=== PATIENT | female | born 1995 | race Caucasian/White ===

== ENCOUNTER 2024-12-31 12:34 | Outpatient (CLI) | payer OTHER, SELFPAY ==
--- NOTE | 2024-12-31 | ECHO_ITS ---
Patient Info Name: Serenity Petty Age: 29 years : 1995 Gender: Female Ht: 64 in Wt: 120 lbs BSA: 1.57 m2 HR: 73 bpm BP: 115 / 80 mmHg Heart Rhythm: Sinus Rhythm Technical Quality: Good Exam Date: 12/31/2024 12:50 PM Exam Location: Echo Lab Patient Status: Outpatient Admit Date: 12/31/2024 Staff Ordering Physician: PapaRobles MD Bar Welder: Loren Murry RDCS Attending Provider: OmidRobles MD Exam Type: CA echo doppler color flow Study Info Indications R00.2 - Palpitations Complete two-dimensional, color flow and Doppler transthoracic echocardiogram is performed. Summary 1. Complete two-dimensional, color flow and Doppler transthoracic echocardiogram is performed. 2. Left ventricular chamber dimension is normal. 3. Left ventricular systolic function is normal, estimated at 65-70%. 4. The left ventricular diastolic function is normal. 5. Right ventricular systolic function is normal. 6. No significant valvular disease. Left Ventricle Left ventricular chamber dimension is normal. Left ventricular systolic function is normal, estimated at 65-70%. There is no increased left ventricular wall thickness. The left ventricular diastolic function is normal. Right Ventricle Right ventricular chamber dimension is normal. Right ventricular systolic function is normal. Left Atria Left atrial chamber dimension is normal. Right Atria Right atrial chamber dimension is normal. Atrial Septum Intact interatrial septum visualized by color flow imaging. Aortic Valve The aortic valve is trileaflet. There is no aortic valve stenosis. There is no aortic valve regurgitation. Pulmonic Valve The pulmonic valve is not well visualized. There is trace pulmonic regurgitation. Mitral Valve There is no mitral valve regurgitation. Tricuspid Valve There is trace tricuspid valve regurgitation. Pericardium/Pleural There is no pericardial effusion. Inferior Vena Cava Normal inferior vena cava with >50% collapse upon inspiration consistent with normal right atrial pressure, 3 mmHg. Aorta The aortic root size at the sinus of Valsalva is normal. Left Ventricular Outflow Tract Name Value Normal LVOT 2D LVOT Diameter 2.0 cm LVOT Doppler LVOT Peak Gradient 4 mmHg LVOT Mean Gradient 2 mmHg LVOT VTI 19 cm LVOT VTI/AV VTI Ratio 0.9 LVOT Stroke Volume 62 ml LVOT CO 4.3 l/min LVOT CI 2.7 l/min/m2 Pulmonic Valve Name Value Normal RVOT Doppler RVOT Peak Gradient 3 mmHg PV Doppler PV Peak Gradient 5 mmHg Mitral Valve Name Value Normal MV Doppler MV Decel Dawson 612 cm/s2 MV PHT 51 ms MV Area (PHT) 4.3 cm2 4.0-5.0 MV Diastolic Function MV E Peak Velocity 108 cm/s MV A Peak Velocity 49 cm/s MV E/A 2.2 MV Decel Time 177 ms MV Annular TDI MV E/e' (Septal) 10.9 <=8.0 MV E/e' (Lateral) 8.2 <=8.0 MV E/e' (Average) 9.5 Tricuspid Valve Name Value Normal TV Regurgitation Doppler TR Peak Velocity 202 cm/s TR Peak Gradient 11 mmHg Estimated PAP/RSVP RA Pressure 3 mmHg <=5 PA Systolic Pressure 19 mmHg <36 RV Systolic Pressure 19 mmHg <36 Aorta Name Value Normal Ascending Aorta Ao Root Diameter (MM) 2.9 cm Ao Root Diam Index (MM) 1.9 cm/m2 Aortic Valve Name Value Normal AV Doppler AV Peak Velocity 105 cm/s AV Peak Gradient 4 mmHg AV Mean Gradient 2 mmHg AV VTI 21 cm AV Area (Cont Eq VTI) 3.0 cm2 >=3.0 AV Area (Cont Eq Frandy) 3.0 cm2 AV Regurgitation 2D LVOT Area 3.2 cm2 Ventricles Name Value Normal LV Dimensions 2D/MM IVS Diastolic Thickness (2D) 0.7 cm 0.6-1.0 LVID Diastole (2D) 4.2 cm 3.8-5.2 LVIW Diastolic Thickness (2D) 0.8 cm 0.6-0.9 LVID Systole (2D) 2.6 cm 2.2-3.5 LVOT Diameter 2.0 cm LV Mass (2D Cubed) 94.52 g 67.00-162.00 LV Mass Index (2D Cubed) 60 g/m2 43-95 Relative Wall Thickness (2D) 0.38 LV Fractional Shortening/Ejection Fraction 2D/MM LV Fractional Shortening (2D) 37 % 27-45 LV EF (2D Teicholz) 68 % 54-74 LV Diastolic Volume (4C MOD) 60 ml LV EF (4C MOD) 64 % LV Diastolic Volume (2C MOD) 76 ml LV EF (2C MOD) 69 % LV Diastolic Volume (BP MOD) 68 ml 46-106 LV Diastolic Volume Index (BP MOD) 44 ml/m2 29-61 LV Systolic Volume (BP MOD) 23 ml 14-42 LV Systolic Volume Index (BP MOD) 15 ml/m2 8-24 LV EF (BP MOD) 66 % 54-74 LV Diastolic Length (4C) 7.6 cm LV Systolic Length (4C) 6.2 cm LV Stroke Volume (4C MOD) 39 ml Atria Name Value Normal LA Dimensions LA Dimension (MM) 3.9 cm 2.7-3.8 LA Volume (4C A-L) 41 ml LA Volume (BP A-L) 45 ml RA Dimensions RA Area (4C) 13.4 cm2 <=18.0 Report Signatures
--- OUTSIDE RECORDS SUMMARY | 2024-12-31 14:28 | XMS_ITS | Clinical Summary ---
Author Organization [facility] Address [address] [place] [address] Care Team Providers Care Base Filler Operator Name Role Phone Unknown, Provider Primary Care Provider Unavaila ble Source Comments [facility],non-owned Affiliates and Associated Physician Practices is amultiple site organization consisting of ambulatory clinics and hospital sitesin [place], [place], [place] and [place]. This disclosure is being madepursuant to the Care Everywhere program and may not contain all information available regarding this patient. Last updated 18.[facility] Allergies No known active allergies Medications * Be aware that medications may not be up to date on this document. Alwaysverify current medications with the patient. Medication Sig Dispensed Refills Start Date End Date Status Norethin-Eth Estrad-Fe Biphas (LO LOESTRIN FE PO) Active Immunizations Name Administration Dates Next Due MENINGOCOCCAL CONJUGATE (MCV4P) 07/22/2016 TDAP (7yrs+) 07/22/2016 Family History Medical History Relation Name Comments Asthma Mother Autoimmune Disease Neg Hx Bipolar Disorder Neg Hx Cancer - Breast Neg Hx Cancer - Colon Neg Hx Cancer - Other Neg Hx Cancer - Ovarian Neg Hx Cancer - Pancreatic Neg Hx Cancer - Prostate Neg Hx Depression Neg Hx Eczema Neg Hx Hypertension Neg Hx Migraine Neg Hx Osteoporosis Neg Hx Seizures Neg Hx Sudd. <30 Neg Hx Thyroid Disease Neg Hx Ulcerative Colitis Neg Hx Relation Name Status Comments Father Alive Mother Alive Social History Tobacco Use Types Packs/Day Years Used Date Smoking Tobacco: Never Smokeless Tobacco: Never Tobacco Cessation:Counseling Given: No Alcohol Use Standard Drinks/Week Comments No 0 (1 standard drink = 0.6 oz pur e alcohol) Sex and Gender Information Value Date Recorded Sex Assigned at Not on file Gender Identity Not on file Sexual Orientation Not on file Last Filed Vital Signs Vital Sign Reading Time Taken Comments Blood Pressure 115/65 03/08/2018 3:58 PM CDT Pulse 68 03/08/2018 3:58 PM CDT Temperature 36.6 C (97.9 F) 03/08/2018 3:58 PM CDT Respiratory Rate 16 03/08/2018 3:58 PM CDT Oxygen Saturation 97% 03/08/2018 3:58 PM CDT Inhaled Oxygen Concentration - - Weight 68 kg (150 lb) 03/08/2018 3:58 PM CDT Height 165.1 cm (5' 5 ) 03/08/2018 3:58 PM CDT Body Mass Index 24.96 03/08/2018 3:58 PM CDT Plan of Treatment Health Maintenance Due Date Last Done Comments PAP SMEAR 1995 HIV SCREENING 2009 HEPATITIS C SCREENING 12/04/2012 HEPATITIS B VACCINE (1 of 3 - 19+ 3-dose series) 2013 COVID-19 VACCINE (2023-2 5 season) 2024 INFLUENZA VACCINE (#1) 2024 DEPRESSION SCREENING 10/09/2024 DTAP/TDAP/TD VACCINES (2 - T d or Tdap) 07/22/2026 07/22/2016 ZOSTER VACCINE (1 of 2) 2044 MENINGOCOCCAL GROUPS A/C/Y/W VACCINE Aged Out 07/22/2016 No longer eligible b ased on patient's age to complete this topic HIB VACCINE Aged Out No longer eligi ble based on patient's age to complete this topic HPV VACCINE Aged Out No longer eligi ble based on patient's age to complete this topic MENINGOCOCCAL (Group B) VACC INE SHARED DECISION-MAKING Aged Out No longer eligibl e based on patient's age to complete this topic PNEUMOCOCCAL VACCINE Aged Out No long er eligible based on patient's age to complete this topic Care Teams Base Filler Operator Relationship Specialty Start Date End Date Unknown, Provider PCP - General 08/29/16
--- OUTSIDE RECORDS SUMMARY | 2024-12-31 14:28 | XMS_ITS | Clinical Summary ---
Author Organization [facility] Address [address] [place] [id number] Care Team Providers Care Ham Curer Name Role Phone Evens Templeton MD Primary Care Provider [phone] Allergies No known active allergies Medications levonorgestrel 19.5 MG IUD 09/02/2019 Active buPROPion XL (WELLBUTRIN XL) 300 MG 24 hr tablet Take 300 mg by mouth daily. 03/25/2022 Active valACYclovir (VALTREX) 500 MG tabletIndication s:Herpes simplex labialis Take 1 tablet (500 mg total) by mouth daily. 90 tablet 11/07/2022 Active Active Problems Problem Noted Date Diagnosed Date Migraine without aura and wi thout status migrainosus, not intractable 02/14/2020 Overview (02/14/2020): will continue with OTC treament complex migraine? will consider other abortive therapies or preventative treatments if continues fu as needed labs ordered Obesity (BMI 30-39.9) 02/14/2020 Herpes simplex labialis 04/24/2018 Strain of left knee 04/05/2018 Resolved Problems Problem Noted Date Diagnosed Date Resolved Date Encounter for preventive health examination 04/02/2018 06/19/2020 Immunizations Name Administration Dates Next Due DTaP-IPV (Kinrix) 08/01/2000, 5,05/22/1995,02/17 Dtap (Generic) 05/24/2005, 0,06/20/1996,07/24,05/22/1995,02/17/1995 Hepatitis B 12/30/1995,01/13/1995,1994 Hepatitis B (Generic Peds) 12/30/1995,01/13/1995 ,1994 Hib (Generic) 07/24/1995,05/22/1995,02/17/1995 MMR (Generic) 08/01/2000,12/30/1995 Avmypfq-Ozbtv-Sywgyro-Varicell Sc Inj 08/01/2000 ,12/30/1995 Meningococcal (Menactra) 07/22/2016 Meningococcal Vac A,C,Y,W-135 Sc 07/22/2016 Polio Ipv (Generic) 08/01/2000, 5,05/22/1995,02/17 Tdap (Generic) 07/22/2016,05/24/2005 Varicella (Generic) 08/26/1996 Family History Medical History Relation Comments Cancer Maternal Grandmother Asthma Mother COPD Mother Relation Status Comments Father Alive Maternal Grandmother Mother Alive Social History Tobacco Use Types Packs/Day Years Used Date Smoking Tobacco: Never Smokeless Tobacco: Never Tobacco Cessation:Counseling Given: No Alcohol Use Standard Drinks/Week Comments Not Currently 1.7 (1 standard drink = 0.6 oz p ure alcohol) social PHQ-2 Answer Date Recorded PHQ-2 Score - If the patient scores above 3, please move on to questions 3-9 3 06/05/2020 Comments No Sex and Gender Information Value Date Recorded Sex Assigned at Not on file Legal Sex Female 7:14 PM CDT Gender Identity Not on file Sexual Orientation Not on file Last Filed Vital Signs Vital Sign Reading Time Taken Comments Blood Pressure 98/50 07/18/2022 8:17 AM CDT Pulse 66 07/18/2022 8:17 AM CDT Temperature 36 C (96.8 F) 07/18/2022 8:17 AM CDT Respiratory Rate 16 07/18/2022 8:17 AM CDT Oxygen Saturation 100% 07/18/2022 8:17 AM CDT Inhaled Oxygen Concentration - - Weight 64.9 kg (143 lb) 07/18/2022 8:17 AM CDT Height 162.6 cm (5' 4 ) 07/18/2022 8:17 AM CDT Body Mass Index 24.55 07/18/2022 8:17 AM CDT Plan of Treatment Health Maintenance Due Date Last Done Comments Cervical Cancer Screening Pap Smear (Age 30 to 64) Every 3 Years 1995 Annual Physical 1997 Hepatitis C 2012 COVID-19 Vaccine ( season) 2024 Influenza Adult (#1) 2024 PHQ-2 (Physician Christmas) 10/09/2024 Cervical Cancer Screening Pap with HPV Testing (Age 30 to 64) Every 5 Years 2024 Cervical Cancer Screening with HPV 2024 DTaP, Tdap and Td Vaccines (9 - Td or Tdap) 07/22/2026 07/22/2016, 05/24/2005, 05/24/2005, Additional history exists Hepatitis B Vaccines Completed 12/30/1995, 12/30/1995, 01/13/1995, Additional history exists Meningococcal Vaccine Aged Out 07/22/2016, 016 No longer eligible based on patient's age to complete this topic HPV Vaccines Aged Out No longer eligi ble based on patient's age to complete this topic Meningococcal B Vaccine Aged Out No l onger eligible based on patient's age to complete this topic Pneumococcal Vaccine: Pediatrics (0 to 5 Years) and At-Risk Patients (6 to 64 Years) Aged Out No longer eligible based on patient's age to complete this topic RSV Immunizations Under 20 Months Aged Out No longer eligible based on patient's age to complete this topic Insurance Care Teams Ham Curer Relationship Specialty Start Date End Date Evens Templeton MD [address] [place] [id number] PCP - General FAMILY PRACTICE 03/07/24
== END 2024-12-31 12:35 | disposition home or self-care (01) ==
LOC: ANHCARD 12:35
PROVIDERS: PCP Pediatrics; Visit Provider Internal Medicine
DX: R00.2 Palpitations (principal)
CPT/HCPCS: 93306

== ENCOUNTER 2024-12-31 13:49 | Outpatient (CLI) | payer OTHER, SELFPAY ==
--- NOTE | ~2024-12-31 | XR_ITS ---
EXAMINATION: XR chest 2V 12/31/2024 14:26 INDICATION: Chest palpitations PROCEDURE: 2 view chest COMPARISON: No prior studies for comparison. FINDINGS: The lungs are clear. The cardiomediastinal silhouette is within normal limits. There are no pleural effusions. There is no pneumothorax suspected. IMPRESSION: 1: NO ACUTE CARDIOPULMONARY DISEASE. Reviewed, dictated and finalized at location A.
--- NOTE | ~2024-12-31 | XR_ITS ---
XR shoulder RT min 2V 12/31/2024 14:26 Indication: Right shoulder pain Procedure: 4 views right shoulder Comparison: No prior studies for comparison. Findings: There is anatomic alignment. No fracture, subluxation or dislocation. No foreign bodies. Impression: 1: No significant bone or joint abnormality. Reviewed, dictated and finalized at location A. Impression: 1: No significant bone or joint abnormality.
== END 2024-12-31 13:50 | disposition home or self-care (01) ==
PROVIDERS: PCP Internal Medicine; Visit Provider Internal Medicine
DX: R00.2 Palpitations (principal); M25.511 Pain in right shoulder
CPT/HCPCS: 71046; 73030

== ENCOUNTER 2025-09-23 10:09 | Outpatient (CLI) | payer OTHER, SELFPAY ==
[2025-09-23 11:16] LABS: Thyroid Stimulating Hormone Reflex 1.100 uIU/mL (0.465-4.68)
--- OUTSIDE RECORDS SUMMARY | 2025-09-23 11:48 | XMS_ITS | Clinical Summary ---
Author Organization [facility] Address [address] [place] [address] Care Team Providers Care Slice Cutting Machine Operator Helper Name Role Phone Unknown, Provider Primary Care Provider Unavaila ble Source Comments [facility],non-owned Affiliates and Associated Physician Practices is amultiple site organization consisting of ambulatory clinics and hospital sitesin [place], [place], [place] and [place]. This disclosure is being madepursuant to the Care Everywhere program and may not contain all information available regarding this patient. Last updated 18.[facility] Allergies No known active allergies Medications * Be aware that medications may not be up to date on this document. Alwaysverify current medications with the patient. Norethin-Eth Estrad-Fe Biphas (LO LOESTRIN FE PO) Active Immunizations Immunization Administration Dates Next Due MENINGOCOCCAL ACWY (MCV4P) VAC IM 07/22/2016 TDAP (7yrs+) 07/22/2016 Family History Medical [...] drink = 0.6 oz pur e alcohol) Comments No Sex and Gender Information Value Date Recorded Sex Assigned at Not on file Legal Sex Female 10:55 AM CDT Gender Identity Not on file Sexual [...] 3:58 PM CDT Height 165.1 cm (5' 5) 03/08/2018 3:58 PM CDT Body Mass Index 24.96 03/08/2018 3:58 PM CDT Plan of Treatment Health Maintenance Due Date Last Done Comments HIV SCREENING 2009 HEPATITIS C SCREENING 12/04/2012 HEPATITIS B VACCINE (1 of 3 - 19+ 3-dose series) 2013 HPV VACCINE (1 - 3-dose SCDM series) 2021 DEPRESSION SCREENING 10/09/2024 COVID-19 VACCINE (1 - 2024-2 6 season) 2025 INFLUENZA VACCINE (#1) 2025 DTAP/TDAP/TD VACCINES (2 - T d or [...] patient's age to complete this topic Insurance [facility] Care Teams Slice Cutting Machine Operator Helper Relationship Specialty Start Date End Date Unknown, Provider PCP - General 08/29/16
--- OUTSIDE RECORDS SUMMARY | 2025-09-23 11:48 | XMS_ITS | Clinical Summary ---
Author Organization [facility] Address [address] [place] [address] Care Team Providers Care Wool Tamper Name Role Phone Evens Templeton MD Primary Care Provider [phone] Allergies No known active allergies Medications levonorgestrel [...] for preventive health examination 04/02/2018 06/19/2020 Immunizations Immunization Administration Dates Next Due DTaP-IPV (Kinrix) 08/01/2000, 5,05/22/1995,02/17 Dtap (Generic) 05/24/2005, 0,06/20/1996,07/24,05/22/1995,02/17/1995 Hepatitis B 12/30/1995,01/13/1995,1994 Hepatitis B (Generic Peds) 12/30/1995,01/13/1995 ,1994 Hib (Generic) 07/24/1995,05/22/1995,02/17/1995 MMR (Generic) 08/01/2000,12/30/1995 Ejlketo-Ecepi-Whthjoj-Varicell Sc Inj 08/01/2000 ,12/30/1995 Meningococcal (Menactra) 07/22/2016 [...] 8:17 AM CDT Height 162.6 cm (5' 4) 07/18/2022 8:17 AM CDT Body Mass Index 24.55 07/18/2022 8:17 AM CDT Plan of Treatment Health Maintenance Due Date Last Done Comments Cervical Cancer Screening Pap Smear (Age 30 to 64) Every 3 Years 1994 Annual Physical 1997 Hepatitis C 2012 HPV Vaccines (1 - 3-dose SCDM series) 2021 PHQ-2 (Physician [place]) 10/09/2024 Cervical Cancer Screening Pap with HPV Testing (Age 30 to 64) Every 5 Years 2024 Cervical Cancer Screening with HPV 2024 COVID-19 Vaccine ( season) 2025 Influenza Adult (#1) 2025 DTaP, Tdap and Td Vaccines (9 - Td or Tdap) 07/22/2026 07/22/2016, 05/24/2005, 05/24/2005, Additional history exists Hepatitis B Vaccines Completed 12/30/1995, 12/30/1995, 01/13/1995, Additional history exists Meningococcal Vaccine Aged Out 07/22/2016, 016 No longer eligible based on patient's age to complete this topic Hepatitis A Vaccines Aged Out No long er eligible based on patient's age to complete this topic Meningococcal B Vaccine Aged Out No l onger eligible based on patient's age to complete this topic Pneumococcal Vaccine: Pediatrics (0 to 5 Years) and At-Risk Patients (6 to 49 Years) Aged Out No longer eligible based on patient's age to complete this topic RSV Immunizations Under 20 Months Aged Out No longer eligible based on patient's age to complete this [place] [id number] Care Teams Wool Tamper Relationship Specialty Start Date End Date Evens Templeton MD [address] [place] [address] PCP - General FAMILY PRACTICE 03/07/24
[2025-09-24 10:09] LABS: FSH 6.6 mIU/mL (.)
[2025-09-27 10:08] LABS: Estradiol, Sensitive 42.0 pg/mL (.)
== END 2025-09-23 10:10 | disposition home or self-care (01) ==
PROVIDERS: PCP Internal Medicine; Visit Provider Obstetrics & Gynecology
DX: N92.6 Irregular menstruation, unspecified (principal)
CPT/HCPCS: 36415; 82670; 83001; 84144; 84443